=== PATIENT | female | born 1955 | race African-American/Black ===

== ENCOUNTER 2022-04-19 16:24 | Outpatient (CLI) | payer MEDICARE, OTHER, SELFPAY ==
--- NOTE | ~2022-04-19 | XR_ITS ---
EXAMINATION: XR ribs RT 2V DATE: 04/19/2022 17:05 INDICATION: Right chest and abdominal pain. TECHNIQUE: 2 views of the right ribs on 3 radiographs were obtained. COMPARISON: Chest 2 views 02/01/2015 FINDINGS: There is no right-sided pneumonia, pleural effusion, or pneumothorax. There is a prominent right paracardial fat pad. There are suture anchors in right humeral head. There are likely changes o f distal right clavicle resection. IMPRESSION: 1. No rib fracture. Reviewed, dictated and finalized at location A. IMPRESSION: 1. No rib fracture.
--- NOTE | ~2022-04-19 | XR_ITS ---
EXAMINATION: XR thoracic spine 3V DATE: 04/19/2022 17:06 INDICATION: Right upper back pain. TECHNIQUE: 3 views of thoracic spine were obtained. COMPARISON: Chest 2 views 02/01/2015 FINDINGS: There is 5 degrees levocurvature of thoracic spine. Vertebral body heights are normal. Ther e is severely decreased disc height at T3-T4 and T4-T5 and moderately decreased disc height at T2-T3 and T5-T6. There is mildly decreased disc height at multiple levels. There are endplate osteophytes a t all levels. IMPRESSION: 1. Severe thoracic spondylosis. Reviewed, dictated and finalized at location A.
== END 2022-04-19 16:25 | disposition home or self-care (01) ==
PROVIDERS: PCP Family Medicine; Visit Provider Physician Assistant
DX: R07.81 Pleurodynia (principal); R10.11 Right upper quadrant pain; M47.814 Spondylosis without myelopathy or radiculopathy, thoracic region
CPT/HCPCS: 71100; 72072

== ENCOUNTER 2023-12-13 09:53 | Outpatient (CLI) | payer MEDICARE, OTHER, SELFPAY ==
--- NOTE | ~2023-12-13 | XR_ITS ---
XR cervical spine 4-5 V Ordering provider: Ezequiel Helm MD History: . M54.2 - Cervicalgia . Comparison: None. FINDINGS: VERTEBRAL BODIES: Normal height and alignment. No visible fracture or subluxation. The dens is intact . DISK SPACES: Degenerative disc disease seen at the level of C5-C6. Facet joints are unremarkable. Unc overtebral joint osteoarthritic changes seen at the level of C5-C6. PARASPINOUS SOFT TISSUES: Carotid calcifications seen bilaterally. No prevertebral soft tissue swelli ng. IMPRESSION: No definite acute osseous abnormality cervical spine. Degenerative disc disease at the level of C5-C6 . . Reviewed, dictated and finalized at location A. IMPRESSION: No definite acute osseous abnormality cervical spine. Degenerative disc disease at the level of C5-C6. .
== END 2023-12-13 09:54 ==
PROVIDERS: PCP Family Medicine; Visit Provider Family Medicine
DX: M50.322 Other cervical disc degeneration at C5-C6 level (principal)
CPT/HCPCS: 72050

== ENCOUNTER 2024-02-07 10:45 | Outpatient (CLI) | payer MEDICARE, OTHER, SELFPAY ==
--- NOTE | ~2024-02-07 | MR_ITS ---
MRI of the right foot CLINICAL HISTORY: Pain TECHNIQUE: Sagittal T1-weighted and STIR images, axial proton-density and proton-density fat-sat imag es, and coronal T1-weighted and proton-density fat-sat images were performed. FINDINGS: Bone marrow signals are unremarkable. No fracture, suspicious bone marrow edema, or evidenc e for osteomyelitis. There are mild degenerative changes at the tarsometatarsal joints. No significan t joint effusion identified. Flexor and extensor tendons are intact. No intermetatarsal bursitis or Garcia's neuroma evident. Intr insic musculature of the foot is unremarkable. No soft tissue mass or fluid collection evident. IMPRESSION: Mild degenerative changes at the TMT joints. Reviewed, dictated and finalized at location .
== END 2024-02-07 10:46 ==
LOC: MICIMG 10:46
PROVIDERS: PCP Family Medicine; Visit Provider Podiatrist Foot & Ankle Surgery
DX: M19.071 Primary osteoarthritis, right ankle and foot (principal)
CPT/HCPCS: 73718